=== PATIENT | female | born 1965 | race African-American/Black ===

== ENCOUNTER → 2016-10-22 | Outpatient (CLI) | payer OTHER ==
[~2016-10-22] MED LIST: AZITHROMYCIN250 MG PO; BENTYL10 MG PO; BREO ELLIPTA 11 EACH INH; FLAGYL250 M1 PO; GLUCOTROL PO; HYDROCODON-ACE1 EAC5 PO; INVOKANA100 MG PO; LEVAQUIN PO; LIPITOR PO; LISINOPRIL-HCTZ1 T18 PO; LOVENOX40 MG/0.4 INJ; NEURONTIN800 MG PO; NICOTINE TRANSD14 MG EXT; NORCO 10-325 TA1 TAB PO; OMEGA 3-6-9 11200 M1 PO; ONDANSETRON ODT4 MG PO; PERCOCET5/325 PO; PHENERGAN25 M1 PO; PHENERGAN25 MG PO; VITAMIN D350000 UNIT PO; VOLTAREN100 GM; XANAX1 MG PO; ZOFRAN ODT4 MG PO; ZYRTEC10 M1 PO
--- NOTE | ~2016-10-22 | CR173 ---
[facility] A Service of [facility] & [facility] RADIOLOGY TEXT RESULTS PATIENT: NURIA CHAMBERLAIN LOCATION: [facility] : 63 UNIT #: [id number] AGE: [address]: Juany Rivera APRN SEX: F ORDER DR: [id number] [facility] [address] [facility]. [place], [place] [address] [id number] O MR#: [id number] #: [id number] NAME: NURIA CHAMBERLAIN : 1965 SEX: F STUDY DATE/TIME: 10/22/2016 15:31 UNIT: [facility] ROOM: STUDY DESCRIPTION: CR Knee 3 Views Rt Attending Physician: Juany Rivera A.P.R.N. Referring Physician: Juany Rivera A.P.R.N. Ordering Physician: Juany Rivera A.P.R.N. Primary Care Physician: Darian Hanson M.D. MEDICAL IMAGING REPORT This report is preliminary unless electronic signature is present EXAM Right knee 3 views HISTORY Knee pain after fall today. FINDINGS 3 views of the right knee demonstrate normal bone alignment. No fracture or joint space narrowing or effusion. Total knee arthroplasty components are in satisfactory position. IMPRESSION No acute findings. Total knee arthroplasty components are in satisfactory position. Dictated by... Hubert Watt M.D. THIS IS AN ELECTRONICALLY VERIFIED REPORT Hubert Watt M.D. at 10/22/2016 10:40 PM DFL/pcl TD: 10/22/2016 22:13 JOB #: [id number] MEDICAL IMAGING REPORT Page 1 of 1 COPY
== END | disposition home or self-care (01) ==
LOC: CRAD 15:20
DX: M25.561 Pain in right knee (principal); Z96.651 Presence of right artificial knee joint
CPT/HCPCS: 73562

== ENCOUNTER 2016-11-01 16:50 | Inpatient (IN) | payer OTHER ==
--- NOTE | ~2016-11-01 | HP ---
Unit #: [id number] #: [id number] Patient: NURIA CHAMBERLAIN [id number] [address] [address] [id number] I MR#: [id number] NAME: NURIA CHAMBERLAIN ROOM: 222 Age: 51 Sex: F Admission Date: 11/02/2016 : 1965 Attending Physician: Baron Aguilar M.D. Primary Care Physician: Darian Hanson M.D. HISTORY AND PHYSICAL CHIEF COMPLAINT Nausea, vomiting, dizziness and abdominal pain. HISTORY OF PRESENT ILLNESS A 51-year-old female who was doing well until yesterday morning. Yesterday morning, when she woke up, she was very dizzy. She could not even get to the bathroom. She just tried to help herself and tried to take her shower but really could not. She started having nausea, vomiting and had an episode of diarrhea. She started having abdominal pain, was not feeling well at all and came to the ER. The patient was admitted for colitis. According to the patient, she is doing very well at this time. She is almost 70% better. She has not had any nausea or vomiting today. She is on clear liquid diet and is able to tolerate. She had a lot of fatigue and tiredness and weakness yesterday, which is kind of improving. She does not complain of any syncopal episode. Did not have any fever, chills or rigors. PAST MEDICAL HISTORY 1. Hypertension. 2. Hyperlipidemia. 3. Diabetes mellitus type (1)____. 4. Degenerative disk disease. 5. Osteoarthritis. 6. Anxiety disorder. PAST SURGICAL HISTORY 1. History of ventral hernia repair. 2. History of pilonidal cyst resection from sacral area x2. 3. Right total knee replacement. HOME MEDICATIONS 1. Hydrocodone 10/325 mg 1 tablet t.i.d. p.r.n. 2. Breo 100/25 one inhalation daily. 3. Neurontin 800 mg t.i.d. 4. Zyrtec 10 mg daily. 5. Lipitor 10 mg daily. 6. Lisinopril/Hydrochlorothiazide 10/12.5 mg 1 tablet p.o. daily. 7. Invokana 100 mg p.o. daily. 8. Glucotrol 5 mg b.i.d. 9. Voltaren b.i.d. 10. Xanax 1 mg p.o. t.i.d. SOCIAL HISTORY Unit #: [id number] #: [id number] Patient: NURIA CHAMBERLAIN Patient lives at home with a friend. She smokes 1 cigarette a day. No history of alcohol abuse or drug abuse. FAMILY HISTORY Unremarkable. ALLERGIES Penicillins. REVIEW OF SYMPTOMS As per history of present illness. No history of ear, nose and throat problems. No history of headaches. No history of chest pain. No history of syncopal episode. Rest is as per history of present illness. PHYSICAL EXAMINATION GENERAL: The patient is lying comfortably in bed in no respiratory distress. VITAL SIGNS: Blood pressure is 108/58, respiratory rate 15, pulse 88, temperature 98.1, oxygen saturation 99%. HEENT: Head is normocephalic. Eye movements are normal. Oral cavity is moist. NECK: Neck is supple. Trachea is midline. No thyromegaly. RESPIRATORY: Chest has fair air entry. No adventitious sounds. CVS: S1, S2 positive. Regular rhythm. ABDOMEN: Obese, soft. Mild tenderness is present generalized. No rigidity or rebound. EXTREMITIES: Negative edema. INDUSTRIAL MECHANIC: The patient is awake, alert and oriented x3. No focal neurologic deficits. DIAGNOSTIC STUDIES LABORATORY: Lab workup shows WBC 7.8, hemoglobin 15.1, hematocrit 45.8, platelet count of 288. Troponin was less than 0.05. Sodium 138, potassium 3.4, chloride 102, bicarb 26, BUN 11, creatinine 1. Alcohol level was less than 5. Urine drug screen was done, which was positive for benzodiazepines. Lipase 36. Urinalysis - Glucose more than 1,000. Blood sugar this morning is 102. CARDIOVASCULAR: EKG shows normal sinus rhythm, nonspecific ST-T wave abnormalities. IMAGING: CT scan of the head without contrast was done because of dizziness. It does show there is mucosal thickening and scattered air-fluid level in the right mastoid, possible right mastoiditis. CT scan of the abdomen and pelvis was done, which shows long segment thickening of the distal ileum with mild adjacent mesenteric fat stranding. Could be acute ileitis. There is no evidence of acute appendicitis. ASSESSMENT AND PLAN 1. Patient is being admitted to med/surg unit with acute abdomen. 2. Acute ileitis. 3. Nausea and vomiting. 4. Dizziness. 5. Hypokalemia. 6. Diabetes mellitus type 2. 7. Hypertension. Unit #: [id number] #: [id number] Patient: NURIA CHAMBERLAIN 8. Hyperlipidemia. 9. Degenerative disk disease. 10. Anxiety. PLAN Admit to med/surg. LSA has been consulted. IV Flagyl 500 q.12 is being started. IV Levaquin 500 mg daily is being started. IV Protonix 40 mg daily is being started. Lovenox 40 mg subcu daily. Patient's home medications have been reviewed and adjusted. GI and DVT prophylaxis have been added. Patient may need colonoscopy once she is stable. All questions are answered. Patient verbalized understanding. Please refer to progress note for further orders. Dictated by Christina Nance/bipin TD: 11/02/2016 13:58 JOB #: [id number] HISTORY AND PHYSICAL Page 1 of 1 X Jeana West MD X HISTORY AND PHYSICAL
--- NOTE | ~2016-11-01 | CR72 ---
[facility] A Service of [facility] RADIOLOGY TEXT RESULTS PATIENT: NURIA CHAMBERLAIN LOCATION: [facility] : 63 UNIT #: [id number] AGE: [address]: Baron Aguilar MD SEX: F ORDER DR: [id number] [facility] [address]. [place], [place] [address] [id number] E MR#: [id number] Acc #: [id number] NAME: NURIA CHAMBERLAIN : 1965 SEX: F STUDY DATE/TIME: 11/01/2016 18:38 UNIT: [facility] ROOM: STUDY DESCRIPTION: CR Chest Single View Portable Attending Physician: Homero Morales D.O. Ordering Physician: Reece Sesay M.D. Primary Care Physician: Darian Hanson M.D. MEDICAL IMAGING REPORT This report is preliminary unless electronic signature is present EXAM Portable chest x-ray 11/01/2016 HISTORY Dizziness. Mild congestion began yesterday. Smoker 20 years history. TECHNIQUE AP radiograph chest. COMPARISON STUDIES Study dated 09/08/2015. FINDINGS Heart mildly enlarged. Stable. Pulmonary vasculature is more prominent than on the prior examination suggesting mild vascular congestion. Subtle generalized interstitial prominence in the unq-ov-lodvm lung zones could be a reflection of borderline interstitial edema. There is no airspace disease, pleural effusion or pneumothorax. No suspicious nodule. Stable appearance of healed granulomas disease. Degenerative changes in the spine. No acute-appearing bony abnormality. Dictated by... Gregory Landaverde M.D. THIS IS AN ELECTRONICALLY VERIFIED REPORT Gregory Landaverde M.D. at 11/04/2016 8:26 AM DONA/khris TD: 11/01/2016 23:09 JOB #: [id number] [facility] A Service of [facility] & [facility] RADIOLOGY TEXT RESULTS PATIENT: NURIA CHAMBERLAIN LOCATION: [facility] : 63 UNIT #: [id number] AGE: [address]: Baron Aguilar MD SEX: F ORDER DR: MEDICAL IMAGING REPORT Page 1 of 1 COPY
--- NOTE | ~2016-11-01 | CO ---
Unit #: [id number] #: [id number] Patient: NURIA CHAMBERLAIN [id number] [address] [address] [id number] I MR#: [id number] NAME: NURIA CHAMBERLAIN ROOM: 222 Age: 51 Sex: F Admission Date: 11/02/2016 : 1965 Attending Physician: Baron Aguilar M.D. Primary Care Physician: Darian Hanson M.D. Consultation Date: 11/02/2016 CONSULTATION REPORT BRIEF HISTORY The patient is a 51-year-old lady, who presents with acute onset of right lower quadrant and suprapubic abdominal pain. Some nausea. No vomiting. Some loose bowel movements. No fevers or chills. No history of similar type pains. Also complaining of some dizziness. PAST MEDICAL HISTORY Hypertension and diabetes. PAST SURGICAL HISTORY She has had a hernia repair and right knee replacement. Recent colonoscopy in 03/2015. MEDICATIONS Nicotine patch, lisinopril, multivitamins, Lovenox, Glucotrol. SOCIAL HISTORY Does smoke a pack per day. Does drink on a daily basis. FAMILY HISTORY Negative for GI malignancy or inflammatory bowel disease. REVIEW OF SYSTEMS No cardiopulmonary complaints at this time. Else, 10 systems reviewed and negative. PHYSICAL EXAMINATION GENERAL: She is awake, alert, appropriate. VITAL SIGNS: Currently, afebrile. HEENT: Unremarkable. NECK: Supple. No JVD. Trachea midline. LUNGS: Clear to auscultation. Bilateral breath sounds symmetric. CARDIOVASCULAR: Regular rate and rhythm. ABDOMEN: Soft. It is mildly tender in the right lower quadrant. No rebound. No masses. No hepatosplenomegaly. No hernias. EXTREMITIES: No clubbing, cyanosis, or edema. DIAGNOSTIC STUDIES LABORATORY RESULTS: Show normal white count. IMAGING STUDIES: CT scan shows inflammation of the distal small bowel. Normal appendix. ASSESSMENT Unit #: [id number] #: [id number] Patient: NURIA CHAMBERLAIN Ileitis. Unknown etiology. PLAN Does not appear to be toxic. Agree with the current choice of antibiotics. Recommend bowel rest and reassess. Dictated by... rGegory Mehta M.D. LICO/joel TD: 11/03/2016 02:39 JOB #: [id number] CONSULTATION REPORT Page 1 of 1 X Gregory Mehta MD CONSULTATION REPORT
--- NOTE | ~2016-11-01 | DS ---
Unit #: [id number] #: [id number] Patient: NURIA CHAMBERLAIN [id number] [address] [place], [place] [address] [id number] I MR#: [id number] NAME: NURIA CHAMBERLAIN ROOM: 222 Age: 51 Sex: F Admission Date: 11/02/2016 : 1965 Discharge Date: 11/04/2016 Attending Physician: Baron Aguilar M.D. Primary Care Physician: Darian Hanson M.D. DISCHARGE SUMMARY FINAL DIAGNOSES 1. Acute abdomen. 2. Ileitis. 3. Possible food poisoning. 4. Nausea and vomiting which is resolved. 5. Dizziness which is resolved. 6. Hypertension. 7. Diabetes mellitus. 8. Hyperlipidemia. 9. Degenerative disc disease. 10. Anxiety disorder. CONSULTATION DURING HOSPITALIZATION Dr. Gregory Mehta - [facility]. LAB WORKUP ON DISCHARGE CBC shows WBC 6.1, hemoglobin 12.7, hematocrit 38.2 and platelet count of 236. BMP shows sodium 142, potassium 3.8, chloride 108, BUN 10, creatinine 0.9, calcium 9.1. Urinalysis - sugar more than 1000, otherwise normal. Troponin less than 0.05. SIGNIFICANT RADIOLOGICAL STUDIES DONE DURING HOSPITALIZATION CT scan of the abdomen and pelvis which showed long segment thickening of the distal ileum with mild adjacent mesenteric fat stranding. Could be infectious or inflammatory in nature. Degenerative changes of lower spine is seen. Low-density lesion in the right kidney measuring up to 6 mm, too small to characterize. HOSPITAL COURSE The patient is a 51-year-old female who was admitted with a complaint of nausea, vomiting, abdominal pain and dizziness. The patient was admitted to Med/Surg unit at [facility]. The patient was diagnosed with ileitis, nausea, vomiting and dizziness and possible food poisoning. The patient was started on IV Flagyl 500 mg q.12 and IV Levaquin. Patient also received IV Protonix. LSA was consulted. It was decided to continue antibiotics and bowel rest. The patient is doing much better at this time. She does not appear toxic. She would like to go home. Patient is stable to be discharged home. The Unit #: [id number] #: [id number] Patient: NURIA CHAMBERLAIN patient may need colonoscopy to be done as an outpatient. This has been explained to her. DISCHARGE MEDICATIONS 1. Neurontin 800 mg t.i.d. 2. Zyrtec 10 mg daily. 3. Xanax 1 mg p.o. t.i.d. 4. Colace 100 mg daily. 5. Breo daily. 6. Lisinopril/hydrochlorothiazide 10/12.5 daily. 7. Lipitor 10 mg daily. 8. Diclofenac b.i.d. 9. Hydrocodone, continue home dose. 10. Invokana 100 mg daily. 11. Glucotrol 5 mg b.i.d. 12. Metronidazole 500 mg p.o. t.i.d. for four days. 13. Levaquin 500 mg p.o. daily for four days. VITAL SIGNS on discharge: Blood pressure is 129/65, respiratory rate 18, pulse is 69, temperature 99.0, oxygen saturation 98%. CHEST has fair air entry, no additional sounds. CVS - S1 and S2 positive, regular rhythm. ABDOMEN is soft. No tenderness. EXTREMITIES - negative edema. DISCHARGE INSTRUCTIONS Patient is being discharged home in stable condition. MEDICATION As per Med Rec. FOLLOWUP 1. Follow up with primary care provider in one week. 2. Follow up with child psychology teacher as an outpatient. 3. Patient may need colonoscopy as outpatient. Dictated by... Christina Nance/zhen TD: 11/05/2016 08:15 JOB #: [id number] DISCHARGE SUMMARY Page 1 of 1 X Jeana West MD X DISCHARGE SUMMARY
--- NOTE | ~2016-11-01 | EKG ---
PATIENT: NURIA CHAMBERLAIN UNIT #: [id number] Ventricular Rate: 64 BPM Atrial Rate: 64 BPM P-R Interval: 118 ms QRS Duration: 76 ms Q-T Interval: 398 ms QTC Calculation(Bezet): 410 ms P Marquette: 3 degrees Calculated R [place]quette: 74 degrees Calculated T [place]quette: 118 degrees Diagnosis Line: Normal sinus rhythm Diagnosis Line: Nonspecific ST and T wave abnormality Diagnosis Line: Prolonged QT Diagnosis Line: Abnormal ECG Diagnosis Line: When compared with ECG of 01-SEP-2015 09:54, Diagnosis Line: Inverted T waves have replaced nonspecific T wave Diagnosis Line: abnormality in Anterior leads Diagnosis Line: Confirmed by HUDSON EVANS MD ([id number]) on Diagnosis Line: 11/01/2016 10:59:20 PM INTERPRETING MD: FADY
--- NOTE | ~2016-11-01 | CT2 ---
[facility] A Service of [facility] & [facility] RADIOLOGY TEXT RESULTS PATIENT: NURIA CHAMBERLAIN LOCATION: [place] [id number] : [birth year] UNIT #: [id number] AGE: [address]: Baron Aguilar MD SEX: F ORDER DR: [id number] [facility] [address] [facility]. [place], [place] [address] [id number] E MR#: [id number] Acc #: [id number] NAME: NURIA CHAMBERLAIN : 1965 SEX: F STUDY DATE/TIME: 11/01/2016 20:40 UNIT: [facility] ROOM: STUDY DESCRIPTION: CT Abd and Pelv W Cont Attending Physician: Homero Morales D.O. Ordering Physician: Reece Sesay M.D. Primary Care Physician: Darian Hanson M.D. MEDICAL IMAGING REPORT This report is preliminary unless electronic signature is present EXAM CT abdomen and pelvis with IV contrast COMPARISON April 03, 2015 and June 12, 2012. INDICATION 51-year-old female with epigastric abdominal pain since yesterday. Dizziness and weakness since yesterday. FINDINGS Axial CT imaging of the abdomen and pelvis was performed after IV administration of 100 mL Isovue-370. Coronal and sagittal reformats were constructed. This CT exam was performed with one or more of the following radiation dose reduction techniques: automatic exposure control, adjustment of mA and/or kV according to patient size, and iterative reconstruction. Midline anterior abdominal wall surgical scar noted. No evidence of associated hernia. Findings suggestive of DISH in the lower thoracic spine. Bulky degenerative facet disease is seen at multiple levels of the lower lumbar spine. There is grade 1 degenerative anterolisthesis of L4 on L5 due to degenerative facet disease. Minimal posterior disc protrusion L5-S1 with posterior annular calcification of the disc. No acute findings in the lower chest. The liver, gallbladder, pancreas and adrenal glands are within normal limits. Calcified splenic granulomas. Incidental note of a tiny low-density lesion in the right kidney measuring up to 6 mm. This was not definitely seen in 2013. No hydronephrosis or hydroureter. No renal or ureteral calculi. Urinary bladder is unremarkable. Uterus is unremarkable. No definite adnexal lesions. No free fluid or pneumoperitoneum. No evidence of bowel obstruction or acute STS. [facility] A Service of [facility] RADIOLOGY TEXT RESULTS PATIENT: NURIA CHAMBERLAIN LOCATION: [facility] 222-01 : [birth year] UNIT #: [id number] AGE: [address]: Baron Aguilar MD SEX: F ORDER DR: inflammatory change. The appendix is normal. There is nonspecific thickening of the whiteside of the distal ileum with mild associated mesenteric fat stranding. This may be infectious or inflammatory in nature. Abdominal aorta is normal in course and caliber, with patency its main branches. There is no evidence of venous thrombosis. No adenopathy. IMPRESSION 1. Long segment thickening of the distal ileum with mild adjacent mesenteric fat stranding. This could be infectious or inflammatory in nature. Clinical correlation recommended. No evidence of acute appendicitis. No free fluid. 2. Degenerative changes of the lower lumbar spine described in the body of the report. 3. Low-density lesion in the right kidney measuring up to 6 mm, too small to characterize. Not mentioned specifically in the body of the report there is a small amount of free fluid adjacent to the dome of the liver and just below the right hemidiaphragm, perhaps secondary to the process ongoing in the distal small bowel. Dictated by... Thomas Page M.D. THIS IS AN ELECTRONICALLY VERIFIED REPORT Thomas Page M.D. at 11/02/2016 4:06 PM GABBY/arlin TD: 11/02/2016 00:56 JOB #: [id number] MEDICAL IMAGING REPORT Page 1 of 1 COPY
--- NOTE | ~2016-11-01 | CT71 ---
[facility] A Service of [facility] & [facility] RADIOLOGY TEXT RESULTS PATIENT: NURIA CHAMBERLAIN LOCATION: [facility] 222-01 : 63 UNIT #: [id number] AGE: [address]: Baron Aguilar MD SEX: F ORDER DR: [id number] [facility] [address] [place], [place] [address] [id number] E MR#: [id number] Acc #: [id number] NAME: NURIA CHAMBERLAIN : 1965 SEX: F STUDY DATE/TIME: 11/01/2016 20:37 UNIT: [facility] ROOM: STUDY DESCRIPTION: CT Head Wo Contrast Attending Physician: Homero Morales D.O. Ordering Physician: Reece Sesay M.D. Primary Care Physician: Darian Hanson M.D. MEDICAL IMAGING REPORT This report is preliminary unless electronic signature is present EXAM CT head, 11/01/2016 HISTORY Dizziness since yesterday, weakness, stomach pain, headache front of head across middle, 10/31/[address] exam was performed with one or more of the following radiation dose reduction techniques: automatic exposure control, adjustment of mA and/or kV according to patient size, and iterative reconstruction. FINDINGS CT head performed skull base through vertex without intravenous contrast. No prior CTs of the head for comparison. The brainstem is unremarkable. Cerebellum and cerebral hemispheres show normal macias matter - white matter differentiation. No hemorrhage. No evidence of acute cortical ischemia. The midline structures are nondisplaced. The basal ganglia are intact. The ventricles, cisterns and sulci are normal in size and contour. There is no intra or extraaxial mass effect or abnormal intracranial fluid collection. The intra orbital soft tissues are unremarkable. The visualized paranasal sinuses and mastoid air cells show mucosal thickening and some subtle air-fluid levels in right mastoid air cells concerning for acute mastoiditis. Consider ENT consultation and followup for management. No fracture. IMPRESSION 1. The brain appears normal. If the patient has ongoing neurologic symptoms, consider followup imaging. 2. Scattered cavernous carotid arterial calcifications. 3. Mucosal thickening and scattered air-fluid levels in the right mastoid air cells suggesting acute right mastoiditis. Correlate clinically. Consider ENT consultation and followup for management. [facility]. [facility] A Service of [facility] RADIOLOGY TEXT RESULTS PATIENT: NURIA CHAMBERLAIN LOCATION: [facility] 222-01 : [birth year] UNIT #: [id number] AGE: [address]: Baron Aguilra MD SEX: F ORDER DR: Dictated by... Gregory Landaverde M.D. THIS IS AN ELECTRONICALLY VERIFIED REPORT Gregory Landaverde M.D. at 11/04/2016 8:26 AM DONA/arlin TD: 11/02/2016 00:17 JOB #: [id number] MEDICAL IMAGING REPORT Page 1 of 1 COPY
[~2016-11-01 16:50] MED LIST changes: -BREO ELLIPTA 11 EACH INH; -FLAGYL250 M1 PO; -HYDROCODON-ACE1 EAC5 PO; -LIPITOR PO; -VOLTAREN100 GM; -ZYRTEC10 M1 PO
[2016-11-01 18:57] LABS: BASOPHIL# 0.1 X10e3 (0-0.3); BASOPHIL% 0.8 % (0-2.5); EOSINOPHIL% 0.1 % (0.0-7.0); HEMATOCRIT 45.8 % (35.0-45.0); HEMOGLOBIN 15.1 gm/dL (12.0-16.0); LYMPHOCYTE# 2.5 X10e3 (1.0-3.5); LYMPHOCYTE% 32.2 % (17.0-45.0); MEAN CELL VOLUME 101.4 FL (83-96); MEAN CORPUSCULAR HEMOGLOBIN 33.4 PG (28-34); MEAN CORPUSCULAR HGB CONC 32.9 g/dL (30-36); MONOCYTE# 0.5 X10e3 (0-1.0); NEUTROPHIL# 4.8 X10e3 (1.5-7.1); NEUTROPHIL% 60.9 % (40-75); PLATELET COUNT 288 X10e3 (140-420); RED BLOOD COUNT 4.52 X10e (3.90-5.30); RED CELL DISTRIBUTION WIDTH 13.8 % (11.0-15.5); WHITE BLOOD COUNT 7.8 X10e3 (4.0-10.5)
[2016-11-01 19:04] LABS: DIFF IND NO
[2016-11-01 19:23] LABS: POC - CKMB 1.7 ng/mL (0.0-7.9); POC - TROPONIN <0.05 ng/mL (<=0.05)
[2016-11-01 19:26] LABS: ALBUMIN SERUM 4.5 g/dL (3.5-5.0); ALKALINE PHOSPHATASE 53 U/L (32-92); ALT (SGPT) 19 U/L (10-40); AST (SGOT) 21 U/L (10-42); BILIRUBIN, DIRECT 0.1 mg/dL (0.0-0.2); BILIRUBIN,TOTAL 1.1 mg/dL (0.2-2.0); BLOOD UREA NITROGEN 11 mg/dL (9-23); CALCIUM SERUM 9.7 mg/dL (8.4-10.2); CARBON DIOXIDE 26 mmol/L (22-31); CHLORIDE 102 mmol/L (100-111); GLUCOSE FASTING 132 mg/dL (70-110); POTASSIUM 3.4 mmol/L (3.5-5.1); PROTEIN TOTAL SERUM 8.4 g/dL (6.0-8.3); SODIUM 138 mmol/L (135-145)
[2016-11-01 19:27] LABS: ALCOHOL BLOOD <5 mg/dL (0)
[2016-11-01 21:13] LABS: URINE SOURCE CLEAN CATCH
[2016-11-01 21:31] LABS: AMPHETAMINE NEG (NEG); BARBITURATES NEG (NEG); BENZODIAZEPINES POS (NEG); COCAINE NEG (NEG); MARIJUANA NEG (NEG); OPIATES NEG (NEG); TRICYCLIC ANTIDEPRESSANTS NEG (NEG); U METHADONE NEG (NEG)
[2016-11-01 21:37] LABS: POC - CKMB <1.0 ng/mL (0.0-7.9); POC - TROPONIN <0.05 ng/mL (<=0.05)
[2016-11-01 22:41] LABS: URINE APPEARANCE CLEAR; URINE BILIRUBIN NEG (NEG); URINE BLOOD NEG (NEG); URINE COLOR YELLOW; URINE GLUCOSE >1000 MG/DL (NEG); URINE KETONE NEG (NEG); URINE LEUKOCYTE ESTERASE NEG (NEG); URINE NITRATE NEG (NEG); URINE PROTEIN NEG (NEG); URINE SPECIFIC GRAVITY 1.028 (1.003-1.035); URINE UROBILINOGEN 0.2 MG/DL (NEG)
[2016-11-01 22:43] LABS: CULTURE INDICATED? NO
[2016-11-02] MEDS ORDERED: VOLTAREN100 GM (01:01)
[2016-11-02] MEDS ORDERED: XANAX1 MG PO (01:01)
[2016-11-02] MEDS ORDERED: HYDROCODON-ACE1 EAC5 PO (01:01)
[2016-11-02] MEDS ORDERED: NEURONTIN800 MG PO (01:02)
[2016-11-02] MEDS ORDERED: BREO ELLIPTA 11 EACH INH (01:02)
[2016-11-02] MEDS ORDERED: ZYRTEC10 M1 PO (01:02)
[2016-11-02] MEDS ORDERED: LIPITOR PO (01:03)
[2016-11-02 07:40] LABS: BASOPHIL# 0.1 X10e3 (0-0.3); BASOPHIL% 0.8 % (0-2.5); EOSINOPHIL# 0.2 X10e3 (0-0.7); EOSINOPHIL% 2.2 % (0.0-7.0); HEMOGLOBIN 13.3 gm/dL (12.0-16.0); LYMPHOCYTE# 2.5 X10e3 (1.0-3.5); LYMPHOCYTE% 33.4 % (17.0-45.0); MEAN CELL VOLUME 101.6 FL (83-96); MEAN CORPUSCULAR HEMOGLOBIN 33.7 PG (28-34); MEAN CORPUSCULAR HGB CONC 33.2 g/dL (30-36); MEAN PLATELET VOLUME 8.9 FL (6.5-11.5); MONOCYTE# 0.5 X10e3 (0-1.0); MONOCYTE% 7.1 % (3.0-12.0); NEUTROPHIL# 4.3 X10e3 (1.5-7.1); NEUTROPHIL% 56.5 % (40-75); PLATELET COUNT 240 X10e3 (140-420); RED BLOOD COUNT 3.94 X10e (3.90-5.30); WHITE BLOOD COUNT 7.6 X10e3 (4.0-10.5)
[2016-11-02 07:44] LABS: DIFF IND NO
[2016-11-02 08:08] LABS: BUN/CREATININE RATIO 11.66; CALCIUM SERUM 8.7 mg/dL (8.4-10.2); CREATININE SERUM 1.2 mg/dL (0.6-1.4); GLOM FILT RATE Estimated 60.2 mL/min (>60); POTASSIUM 3.5 mmol/L (3.5-5.1)
[2016-11-03 06:29] LABS: HEMATOCRIT 39.1 % (35.0-45.0); HEMOGLOBIN 12.9 gm/dL (12.0-16.0); MEAN CELL VOLUME 101.8 FL (83-96); MEAN CORPUSCULAR HEMOGLOBIN 33.7 PG (28-34); MEAN CORPUSCULAR HGB CONC 33.1 g/dL (30-36); RED BLOOD COUNT 3.84 X10e (3.90-5.30); RED CELL DISTRIBUTION WIDTH 14.2 % (11.0-15.5); WHITE BLOOD COUNT 5.9 X10e3 (4.0-10.5)
[2016-11-03 07:43] LABS: BUN/CREATININE RATIO 11.11; CALCIUM SERUM 9.1 mg/dL (8.4-10.2); CREATININE SERUM 0.9 mg/dL (0.6-1.4); GLOM FILT RATE Estimated 85.3 mL/min (>60); POTASSIUM 3.8 mmol/L (3.5-5.1)
[2016-11-04 05:12] LABS: HEMATOCRIT 38.2 % (35.0-45.0); HEMOGLOBIN 12.7 gm/dL (12.0-16.0); MEAN CELL VOLUME 102.6 FL (83-96); MEAN CORPUSCULAR HEMOGLOBIN 34.1 PG (28-34); MEAN CORPUSCULAR HGB CONC 33.2 g/dL (30-36); MEAN PLATELET VOLUME 9.1 FL (6.5-11.5); RED BLOOD COUNT 3.72 X10e (3.90-5.30); RED CELL DISTRIBUTION WIDTH 13.9 % (11.0-15.5); WHITE BLOOD COUNT 6.1 X10e3 (4.0-10.5)
[2016-11-04] MEDS ORDERED: FLAGYL250 M1 PO (13:38)
[2016-11-04] MEDS ORDERED: LEVAQUIN PO (13:39)
== END 2016-11-04 14:44 | disposition home or self-care (01) | DRG 392 ==
LOC: CED 16:50 → C2A 11-02 02:08 → CEDOF 11-02 02:08 → CED 11-02 02:36 → CEDOF 11-02 02:36 → C2A 11-02 12:06
PROVIDERS: Emergency Medicine; Internal Medicine; Physician Assistant Medical; Surgery
DX: K52.89 Other specified noninfective gastroenteritis and colitis (principal); I10 Essential (primary) hypertension; T62.91XA Toxic effect of unspecified noxious substance eaten as food, accidental (unintentional), initial encounter; E11.9 Type 2 diabetes mellitus without complications; E78.5 Hyperlipidemia, unspecified; F41.9 Anxiety disorder, unspecified; M19.90 Unspecified osteoarthritis, unspecified site; Z72.0 Tobacco use
CPT/HCPCS: 36415; 51701; 70450; 71010; 74177; 80048; 80076; 80307; 81003; 82553; 82947; 83690; 84484; 85025; 85027; 93005; 94640; 94664; 94760; 96361; 96374; 96375; 99285; G0480; J1170; J1885; J1956; J2405; Q9967

== ENCOUNTER → 2017-01-28 | Outpatient (CLI) | payer OTHER ==
[~2017-01-28] MED LIST changes: +BREO ELLIPTA 11 EACH INH; +FLAGYL250 M1 PO; +HYDROCODON-ACE1 EAC5 PO; +LIPITOR PO; +VOLTAREN100 GM; +ZYRTEC10 M1 PO
--- NOTE | ~2017-01-28 | US85 ---
[facility] A Service of [facility] & [facility] RADIOLOGY TEXT RESULTS PATIENT: NURIA CHAMBERLAIN LOCATION: [facility] : 63 UNIT #: [id number] AGE: [address]: Celena Mercer MD SEX: F ORDER DR: [id number] [facility] [address] [place], [place] [address] [id number] O MR#: [id number] Acc #: [id number] NAME: NURIA CHAMBERLAIN : 1965 SEX: F STUDY DATE/TIME: 01/28/2017 11:09 UNIT: [facility] ROOM: STUDY DESCRIPTION: LE Veins Unilat or Ltd Stdy Attending Physician: Celena Mercer M.D. Referring Physician: Celena Mercer M.D. Ordering Physician: Celena Mercer M.D. Primary Care Physician: Darian Hanson M.D. MEDICAL IMAGING REPORT This report is preliminary unless electronic signature is present EXAM Right lower extremity venous duplex, 01/28/2017 HISTORY Right lower extremity edema below the knee for 1 year intermittently. Right knee replacement August 2015. Evaluate for deep vein thrombosis. TECHNIQUE Venous ultrasound examination of the right lower extremity was performed using grayscale, spectral Doppler and color flow Doppler imaging. FINDINGS The examination is negative. There is no evidence of right lower extremity deep venous thrombus from the groin to the lower calf. Visualized greater saphenous vein is also patent. IMPRESSION Negative examination. No evidence of right lower extremity deep venous thrombosis. Dictated by... Zheng Beltrán M.D. THIS IS AN ELECTRONICALLY VERIFIED REPORT Zheng Beltrán M.D. at 01/28/2017 4:32 PM LASHELL/tan TD: 01/28/2017 13:03 JOB #: [id number] MEDICAL IMAGING REPORT Page 1 of 1 COPY
== END | disposition home or self-care (01) ==
LOC: CNIV 10:39
DX: M79.89 Other specified soft tissue disorders (principal)
CPT/HCPCS: 93971